=== PATIENT | female | born 1945 | race Caucasian/White ===

== ENCOUNTER 2020-01-28 07:34 | Outpatient (REF) | payer MEDICARE, SELFPAY ==
[2020-01-28 08:13] LABS: MANUAL DIFF FLAG NO
[2020-01-28 08:23] LABS: Basophils Percent Auto 0.7 % (0-2); Eosinophils Absolute Auto 0.2 X10*3/uL (0.0-0.4); Eosinophils Percent Auto 2.5 % (0-4); Hematocrit 42.8 % (37-47); Hemoglobin 14.2 g/dl (12.0-16.0); Imm Gran Abs Auto 0.02 X10*3/uL (0.00-0.03); Imm Gran Pct Auto 0.3 % (0.0-0.4); Lymphocytes Absolute Auto 1.6 X10*3/uL (1.2-4.9); Lymphocytes Percent Auto 26.7 % (20-40); Mean Corpuscular HGB Conc 33.2 g/dl (31.0-35.0); Mean Corpuscular Volume 90.5 fL (80-98); Mean Platelet Volume 8.5 fL (9.4-12.3); Monocytes Absolute Auto 0.6 X10*3/uL (0.1-1.2); Monocytes Percent Auto 9.4 % (2-11); Neutrophils Absolute Auto 3.7 X10*3/uL (2.0-8.3); Neutrophils Percent Auto 60.4 % (45-73); Platelet Count 276 X10*3/uL (160-400); Red Blood Count 4.73 X10*6/uL (4.20-5.50); Red Cell Distribution Width 12.1 % (11.0-16.0); White Blood Count 6.1 X10*3/uL (4.8-10.8)
[2020-01-28 08:42] LABS: Alanine Aminotransferase 31 U/L (0-31); Albumin Level 4.5 g/dL (3.5-5.0); Alkaline Phosphatase 78 U/L (39-117); Anion Gap 13 (12-20); Aspartate Amino Transferase 19 U/L (5-31); Bilirubin Total 1.2 mg/dL (0.0-1.0); Blood Urea Nitrogen 16 mg/dL (9-16); Calcium 9.4 mg/dL (8.4-10.2); Carbon Dioxide 30 mmol/L (22-29); Chloride 98 mmol/L (96-108); Cholesterol 212 mg/dL; Estimated Glomerular Filt Rate > 60; Glucose Fasting 108 mg/dL (60-99); HDL Cholesterol 69 mg/dL; LDL Cholesterol Calculated 126 mg/dl; Potassium 3.6 mmol/l (3.3-5.1); Sodium 137 mmol/L (135-145); Triglycerides 85 mg/dL
[2020-01-28 09:05] LABS: Thyroid Stimulating Hormone 0.84 mIU/mL (0.32-4.0)
== END 2020-01-28 07:35 | disposition home or self-care (01) ==
LOC: HO.LAB 07:34
PROVIDERS: PCP Internal Medicine; Visit Provider Internal Medicine
DX: I10 Essential (primary) hypertension (principal)
CPT/HCPCS: 36415; 80053; 80061; 84443; 85025

== ENCOUNTER 2020-02-11 09:56 | Outpatient (REF) | payer MEDICARE, OTHER, SELFPAY ==
--- NOTE | 2020-02-11 | XR_ITS ---
EXAMINATION: XR PELVIS CLINICAL INFORMATION: Sacroiliitis COMPARISON: None TECHNIQUE: AP view of the pelvis. FINDINGS: Mild degenerative changes are seen at the superior aspect of the right sacroiliac joint. The sacroiliac joints are otherwise well defined without erosive changes to suggest acute sacroiliitis. There are advanced degenerative changes in the lower lumbar spine as well as degenerative changes in the bilateral hips and at the pubic symphysis. No acute osseous abnormality is seen. IMPRESSION: Mild degenerative changes superior right sacroiliac joint. No evidence of erosive sacroiliitis. Degenerative changes in the lumbar spine and hips.
== END 2020-02-11 09:57 | disposition home or self-care (01) ==
LOC: HO.XRAY 09:56
PROVIDERS: PCP Internal Medicine; Visit Provider Physician Assistant
DX: M46.1 Sacroiliitis, not elsewhere classified (principal)
CPT/HCPCS: 72170

== ENCOUNTER 2020-03-28 08:46 | Outpatient (REF) | payer MEDICARE, OTHER, SELFPAY ==
--- NOTE | 2020-03-28 08:50 | MM_ITS ---
EXAMINATION: MM SCREENING DIGITAL BREAST TOMOSYNTHESIS, BILATERAL CLINICAL INFORMATION: Screening. Asymptomatic. The lifetime risk of breast cancer based on the Tyrer-Cuzick Model is 6%. COMPARISON: Mammography: 03/25/2019, 02/25/2018, 01/30/2017 TECHNIQUE: Digital breast tomosynthesis is performed in both the craniocaudal and mediolateral oblique views along with computer-aided detection (CAD). Synthesized 2D images are generated from the tomosynthesis. FINDINGS: There are scattered areas of fibroglandular density (ACR BI-RADS breast composition Category b). Parenchymal pattern is similar to prior exams. No developing density or interval mass or architectural abnormality. Again, there are scattered bilateral punctate and some coarse calcifications predominantly bilateral anterior breasts. No significant changes. MM/MM tomosynthesis screening BI IMPRESSION: No mammographic evidence of malignancy. ASSESSMENT: BI-RADS 2: Benign RECOMMENDATION: Routine annual mammography screening. This patient's information was entered into a reminder system with a target due date for their next mammogram.
== END 2020-03-28 08:47 | disposition home or self-care (01) ==
LOC: HO.MAMMO 08:46
PROVIDERS: PCP Internal Medicine; Visit Provider Internal Medicine
DX: Z12.31 Encounter for screening mammogram for malignant neoplasm of breast (principal)
CPT/HCPCS: 77063; 77067

== ENCOUNTER 2020-08-02 06:58 | Outpatient (REF) | payer MEDICARE, OTHER, SELFPAY ==
[2020-08-02 08:38] LABS: Cholesterol 224 mg/dL; HDL Cholesterol 79 mg/dL; LDL Cholesterol Calculated 131 mg/dl; Triglycerides 70 mg/dL
== END 2020-08-02 06:59 | disposition home or self-care (01) ==
LOC: HO.LAB 06:58
PROVIDERS: PCP Internal Medicine; Visit Provider Internal Medicine
DX: E11.9 Type 2 diabetes mellitus without complications (principal); E78.5 Hyperlipidemia, unspecified
CPT/HCPCS: 36415; 80061

== ENCOUNTER 2020-12-22 07:52 | Outpatient (REF) | payer MEDICARE, OTHER, SELFPAY ==
[2020-12-22 08:52] LABS: MANUAL DIFF FLAG NO
[2020-12-22 08:59] LABS: Basophils Percent Auto 0.6 % (0-2); Eosinophils Absolute Auto 0.3 X10*3/uL (0.0-0.4); Eosinophils Percent Auto 4.2 % (0-4); Hematocrit 41.5 % (37-47); Hemoglobin 13.5 g/dl (12.0-16.0); Imm Gran Abs Auto 0.02 X10*3/uL (0.00-0.03); Imm Gran Pct Auto 0.3 % (0.0-0.4); Lymphocytes Percent Auto 28.5 % (20-40); Mean Corpuscular HGB Conc 32.5 g/dl (31.0-35.0); Mean Corpuscular Hemoglobin 28.8 pg (27.0-33.0); Mean Corpuscular Volume 88.7 fL (80-98); Mean Platelet Volume 8.9 fL (9.4-12.3); Monocytes Absolute Auto 0.6 X10*3/uL (0.1-1.2); Monocytes Percent Auto 8.3 % (2-11); Neutrophils Absolute Auto 4.1 X10*3/uL (2.0-8.3); Neutrophils Percent Auto 58.1 % (45-73); Platelet Count 356 X10*3/uL (160-400); Red Blood Count 4.68 X10*6/uL (4.20-5.50); Red Cell Distribution Width 12.2 % (11.0-16.0); White Blood Count 7.1 X10*3/uL (4.8-10.8)
[2020-12-22 09:07] LABS: Estimated Average Glucose 105 mg/dL; Hemoglobin A1c % 5.3 %
[2020-12-22 09:34] LABS: Alanine Aminotransferase 25 U/L (0-31); Albumin Level 4.7 g/dL (3.5-5.0); Alkaline Phosphatase 99 U/L (39-117); Anion Gap 15 (12-20); Aspartate Amino Transferase 17 U/L (5-31); Bilirubin Total 1.2 mg/dL (0.0-1.0); Blood Urea Nitrogen 11 mg/dL (9-16); Carbon Dioxide 29 mmol/L (22-29); Chloride 94 mmol/L (96-108); Cholesterol 208 mg/dL; Estimated Glomerular Filt Rate > 60; Glucose Fasting 102 mg/dL (60-99); HDL Cholesterol 56 mg/dL; LDL Cholesterol Calculated 126 mg/dl; Sodium 134 mmol/L (135-145); Total Protein 7.4 g/dL (6.5-8.0); Triglycerides 133 mg/dL
== END 2020-12-22 07:53 | disposition home or self-care (01) ==
LOC: HO.LAB 07:52
PROVIDERS: PCP Internal Medicine; Visit Provider Internal Medicine
DX: Z00.00 Encounter for general adult medical examination without abnormal findings (principal); E11.9 Type 2 diabetes mellitus without complications; E03.9 Hypothyroidism, unspecified
CPT/HCPCS: 36415; 80053; 80061; 83036; 84443; 85025

== ENCOUNTER 2021-01-16 08:31 | Outpatient (REF) | payer MEDICARE, OTHER, SELFPAY ==
--- NOTE | ~2021-01-16 | MM_ITS ---
EXAMINATION: BONE DENSITOMETRY CLINICAL INDICATION: Menopause. COMPARISON: Previous BD dated 10/23/2010 and baseline BD dated 05/07/2007. TECHNIQUE: Using a [employer] DXA System (software version: 13.1) manufactured by [employer], dual-energy x-ray absorptiometry was performed of the lumbar spine and left hip. The images are of good technical quality. Summary results are attached. FINDINGS: AP SPINE L1-L3 (excluding L4): The data of L1-L4 has been changed to exclude the L4 vertebral body, because at this level may cause overestimation of lumbar spine density. Current: BMD 1.168 g/cm2, Z-score 1.6, T-score 0.0, normal, 8.8% increase from previous, 0.8% decrease from baseline (<5% change is not significant). Prior: BMD 1.074 g/cm2. Baseline: BMD 1.177 g/cm2. LEFT FEMUR, NECK: Current: BMD 0.691 g/cm2, Z-score -0.6, T-score -2.5, osteoporosis. Prior: BMD 0.814 g/cm2. Baseline: BMD 0.824 g/cm2. LEFT FEMUR, TOTAL: Current: BMD 0.757 g/cm2, Z-score -0.3, T-score -2.0, osteopenia, 19.7% decrease from previous, 20.6% decrease from baseline (<5% change is not significant). Prior: BMD 0.943 g/cm2. Baseline: BMD 0.954 g/cm2. IDENTIFIED RISK FACTORS: Early menopause, height loss, history of fracture (adult), hysterectomy, secondary osteoporosis, bilateral oophorectomy. HISTORY OF FRACTURE: Other. MEDICATIONS: None listed. MM/XR DEXA axial skeleton IMPRESSION: 1. DIAGNOSIS: Osteoporosis based on the lowest T-score value of -2.5 in the femoral neck applying World Health Organization criteria. 2. 10-YEAR FRACTURE RISK PREDICTION, FRAX: Major osteoporotic fracture (clinical spine, forearm, hip or shoulder) 24.8%. Hip fracture 7.6%. 3. Treatment Recommendations: NOF guidelines recommend consideration for treatment in postmenopausal women and men age 50 and older presenting with the following: -A hip or vertebral (clinical or morphometric) fracture. -T-score less than or equal to -2.5 at the femoral neck or spine after appropriate evaluation to exclude secondary causes. -Low bone mass at the hip or spine and a 10-year fracture probability by FRAX of greater than or equal to 3% for hip fracture or greater than or equal to 20% for major osteoporotic fracture based on the [place] adapted WHO algorithm. 4. Other Recommendations: All treatment decisions require clinical judgment and consideration of individual patient factors, including patient preferences, comorbidities, previous drug use, risk factors not captured in the FRAX model (e.g. frailty, falls, vitamin D deficiency, increased bone turnover, interval significant decline in bone density) and possible under or overestimation of fracture risk by FRAX. Additional medical evaluation for secondary cause of low bone mineral density may be appropriate. FUTURE SCAN RECOMMENDATION: People with diagnosed cases of osteoporosis or at high risk for fracture should have regular bone mineral density tests. For patients eligible for Medicare, routine testing is allowed once every 2 years. The testing frequency can be increased to one year for patients who have rapidly progressing disease, those who are receiving or discontinuing medical therapy to restore bone mass, or have additional risk factors.
== END 2021-01-16 08:32 | disposition home or self-care (01) ==
LOC: HO.MAMMO 08:31
PROVIDERS: PCP Internal Medicine; Visit Provider Nurse Practitioner Family
DX: Z13.820 Encounter for screening for osteoporosis (principal); M81.0 Age-related osteoporosis without current pathological fracture; Z78.0 Asymptomatic menopausal state; Z98.890 Other specified postprocedural states; Z90.722 Acquired absence of ovaries, bilateral
CPT/HCPCS: 77080

== ENCOUNTER 2021-04-04 10:24 | Outpatient (REF) | payer MEDICARE, OTHER, SELFPAY ==
--- NOTE | ~2021-04-04 | MM_ITS ---
EXAMINATION: MM SCREENING DIGITAL BREAST TOMOSYNTHESIS, BILATERAL CLINICAL INFORMATION: Screening. Asymptomatic. The lifetime risk of breast cancer based on the Tyrer-Cuzick Model is 4.5%. COMPARISON: Mammography: March 28, 2020 and studies dating back to November 18, 2011 TECHNIQUE: Digital breast tomosynthesis is performed in both the craniocaudal and mediolateral oblique views along with computer-aided detection (CAD). Synthesized 2D images are generated from the tomosynthesis. FINDINGS: The breasts are heterogeneously dense, which may obscure small masses (ACR BI-RADS breast composition Category c). There are no significant masses, abnormal calcifications, or other abnormalities. MM/MM tomosynthesis screening BI IMPRESSION: There are no significant changes from prior study. ASSESSMENT: BI-RADS 1: Negative RECOMMENDATION: Routine annual mammography screening. This patient's information was entered into a reminder system with a target due date for their next mammogram.
== END 2021-04-04 10:25 | disposition home or self-care (01) ==
LOC: HO.MAMMO 10:24
PROVIDERS: Visit Provider Internal Medicine
DX: Z12.31 Encounter for screening mammogram for malignant neoplasm of breast (principal)
CPT/HCPCS: 77063; 77067

== ENCOUNTER 2021-09-30 06:51 | Outpatient (REF) | payer MEDICARE, OTHER, SELFPAY ==
[2021-09-30 08:18] LABS: Cholesterol 218 mg/dL; HDL Cholesterol 62 mg/dL; LDL Cholesterol Calculated 142 mg/dl; Triglycerides 73 mg/dL
== END 2021-09-30 06:52 | disposition home or self-care (01) ==
LOC: HO.LAB 06:51
PROVIDERS: PCP Internal Medicine; Visit Provider Internal Medicine
DX: E11.9 Type 2 diabetes mellitus without complications (principal)
CPT/HCPCS: 36415; 80061

== ENCOUNTER 2021-10-16 07:47 | Outpatient (REF) | payer MEDICARE, OTHER, SELFPAY ==
--- NOTE | ~2021-10-16 | XR_ITS ---
EXAMINATION: XR CERVICAL SPINE CLINICAL INFORMATION: [id number] running down her right hand. COMPARISON: None TECHNIQUE: 3 views of the cervical spine were obtained. FINDINGS: There is mild straightening of the cervical lordosis. The vertebral heights and alignment are normal. There is loss of the C5-C6 and C6-C7 disc heights with moderate ventral spondylosis C5-C6 and mild ventral and posterior spondylosis at the C6-C7 and C5-C6 disc levels. No visible acute fracture, dislocation seen. The craniovertebral junction and the C1-C2 alignment is normal. The prevertebral soft tissues are normal. XR/XR cervical spine 2V IMPRESSION: Moderate ventral spondylosis of the C5-C6 disc level. There is mild posterior spondylosis of the C5-C6 disc level with ventral and posterior spondylosis of the C6-C7 disc levels. No acute fracture or dislocation seen.
== END 2021-10-16 07:48 | disposition home or self-care (01) ==
LOC: HO.XRAY 07:47
PROVIDERS: PCP Internal Medicine; Visit Provider Internal Medicine
DX: M54.2 Cervicalgia (principal)
CPT/HCPCS: 72040

== ENCOUNTER 2022-04-07 11:45 | Outpatient (REF) | payer MEDICARE, OTHER, SELFPAY ==
--- NOTE | ~2022-04-07 | MM_ITS ---
EXAMINATION: MM SCREENING DIGITAL BREAST TOMOSYNTHESIS, BILATERAL CLINICAL INFORMATION: Screening. Asymptomatic. The lifetime risk of breast cancer based on the Tyrer-Cuzick Model is 4%. COMPARISON: Mammography: 04/04/2021, 03/28/2020, 03/25/2019 TECHNIQUE: Digital breast tomosynthesis is performed in both the craniocaudal and mediolateral oblique views along with computer-aided detection (CAD). Synthesized 2D images are generated from the tomosynthesis. FINDINGS: There are scattered areas of fibroglandular density (ACR BI-RADS breast composition Category b). There is no interval mass or developing density or architectural abnormality. Scattered fine calcifications are again demonstrated predominantly anterior breasts. The axilla and skin contours are unremarkable. There are no significant changes from prior studies. MM/MM tomosynthesis screening BI IMPRESSION: No mammographic evidence of malignancy. ASSESSMENT: BI-RADS 2: Benign RECOMMENDATION: Routine annual mammography screening. This patient's information was entered into a reminder system with a target due date for their next mammogram.
== END 2022-04-07 11:46 | disposition home or self-care (01) ==
LOC: HO.MAMMO 11:45
PROVIDERS: PCP Internal Medicine; Visit Provider Internal Medicine
DX: Z12.31 Encounter for screening mammogram for malignant neoplasm of breast (principal)
CPT/HCPCS: 77063; 77067

== ENCOUNTER 2022-07-21 07:22 | Outpatient (REF) | payer MEDICARE, OTHER, SELFPAY ==
[2022-07-21 07:33] LABS: MANUAL DIFF FLAG NO
[2022-07-21 08:03] LABS: Basophils Percent Auto 0.5 % (0-2); Eosinophils Absolute Auto 0.3 X10*3/uL (0.0-0.4); Eosinophils Percent Auto 4.4 % (0-4); Hematocrit 42.4 % (37.0-47.0); Hemoglobin 14.3 g/dl (12.0-16.0); Imm Gran Abs Auto 0.02 X10*3/uL (0.00-0.03); Imm Gran Pct Auto 0.3 % (0.0-0.4); Lymphocytes Absolute Auto 2.1 X10*3/uL (1.2-4.9); Lymphocytes Percent Auto 35.5 % (20-40); Mean Corpuscular HGB Conc 33.7 g/dl (31.0-35.0); Mean Corpuscular Hemoglobin 29.6 pg (27.0-33.0); Mean Corpuscular Volume 87.8 fL (80.0-98.0); Mean Platelet Volume 8.9 fL (9.4-12.3); Monocytes Absolute Auto 0.6 X10*3/uL (0.1-1.2); Neutrophils Absolute Auto 2.9 x10*3/uL (2.0-8.3); Neutrophils Percent Auto 49.3 % (45-73); Platelet Count 281 X10*3/uL (160-400); Red Blood Count 4.83 X10*6/uL (4.20-5.50); Red Cell Distribution Width 12.5 % (11.0-16.0); White Blood Count 5.9 X10*3/uL (4.8-10.8)
[2022-07-21 08:40] LABS: Anion Gap 15 (12-20)
[2022-07-21 08:48] LABS: Alanine Aminotransferase 27 U/L (0-31); Albumin Level 4.5 g/dL (3.5-5.0); Alkaline Phosphatase 83 U/L (39-117); Aspartate Amino Transferase 19 U/L (5-31); Bilirubin Total 1.9 mg/dL (0.0-1.0); Blood Urea Nitrogen 13 mg/dL (9-16); Calcium 9.7 mg/dL (8.4-10.2); Carbon Dioxide 28 mmol/L (22-29); Chloride 96 mmol/L (96-108); Cholesterol 211 mg/dL; Estimated Glomerular Filt Rate > 60; Glucose Fasting 108 mg/dL (60-99); HDL Cholesterol 53 mg/dL; LDL Cholesterol Calculated 137 mg/dl; Sodium 135 mmol/L (135-145); Total Protein 6.9 g/dL (6.5-8.0); Triglycerides 107 mg/dL
== END 2022-07-21 07:23 | disposition home or self-care (01) ==
LOC: HO.LAB 07:22
PROVIDERS: PCP Internal Medicine; Visit Provider Internal Medicine
DX: I10 Essential (primary) hypertension (principal); E78.5 Hyperlipidemia, unspecified; Z13.0 Encounter for screening for diseases of the blood and blood-forming organs and certain disorders involving the immune mechanism
CPT/HCPCS: 36415; 80053; 80061; 85025

== ENCOUNTER 2023-02-17 11:22 | Outpatient (AMB) | payer MEDICARE, OTHER, SELFPAY ==
--- NOTE | 2023-02-17 11:23 | MHC.PC.OV ---
Vital Signs 02/17/23 11:24 Height 5 ft 2 in Weight 159 lb BMI 29.1 BP 132/78 Blood Pressure Location Lt brachial Position Sitting Pulse 68 Pulse Source Pulse Oximeter Pulse Oximetry (%) 98 Oxygen Delivery Method Room Air Intake Visit Reasons: 6 month f/u Allergies penicillin V Allergy (Unknown, Verified 02/17/23 11:24) Unknown Medication List - Last Reconciled 02/17/23 by Kenney Deluna MD amlodipine 5 mg PO DAILY hydrochlorothiazide 25 mg PO DAILY lisinopril 30 mg PO DAILY lovastatin 40 mg PO DAILY Tobacco use date assessed: 08/06/22 Fall risk assessment: No Falls in past year Last assessed Fall Risk: 02/17/23 Dental Screening Dental Screen Date: 02/17/23 Did you have a dental visit in the last 12 months?: Yes Did you have a dental problem in the last 6 months where you did not have access to dental care?: No Was dental information given to patient?: Patient has dentist HPI 6 month f/u HPI Details HTN and hyperlip on rx; doing well; compliant [facility] Medical History Post-menopausal Preop exam for internal medicine Surgical History History of left knee replacement History of hysterectomy Family History Father Myocardial infarction Mother Breast cancer Social History Housing: House Alcohol intake: current Alcohol intake frequency: 0-2 drinks per day Alcohol type: wine Patient Tobacco Use Status: Never used Tobacco e-Cigarette/Vaping Use: Never Used Second Hand Smoke Exposure: Yes service: No Current occupational status: employed and retired Cognitive needs: No Hearing needs: Yes (hear aide) Vision needs: Yes (reading glasses) Questionnaire PHQ-9 Over the last 2 weeks, how often have you been bothered by any of the following problems? 1. Little interest or pleasure in doing things: not at all 2. Feeling down, depressed, or hopeless: not at all 3. Trouble falling or staying asleep, or sleeping too much: not at all 4. Feeling tired or having little energy: not at all 5. Poor appetite or overeating: not at all 6. Feeling bad about yourself - or that you are a failure or have let yourself or your family down: not at all 7. Trouble concentrating on things, such as reading the newspaper or watching television: not at all 8. Moving or speaking so slowly that other people could have noticed. Or the opposite - being so fidgety or restless that you have been moving around a lot more than usual: not at all 9. Thoughts that you would be better off or of hurting yourself in some way: not at all Total score: 0 Depression Screening Interpretation: Negative Depression Screening Done: Yes Source: Developed by Drs. Santiago Greenfield, Jose Lamas and colleagues, with an educational citlalli from [employer]. Thrive Questionnaire Date Thrive assessed: 08/06/22 AUDIT C Alcohol Use Questionnaire (AUDIT-C) 1. How often do you have a drink containing alcohol?: 4 or more times a week 2. How many drinks containing alcohol do you have on a typical day when you are drinking?: 1 or 2 3. How often do you have six or more drinks on one occasion?: Never Total Score: 4 ENMA-7 AMB Questionnaire ENMA-7 Date ENMA - 7 assessed: 08/06/22 Source: Developed by Drs. Santiago Greenfield, Jose Lamas and colleagues, with an educational citlalli from [employer]. Review of Systems Const Denies chills, Denies headache(s) and Denies weight loss ENT Denies headache(s) Card Denies chest pain, Denies syncope, Denies irregular heart rhythm and Denies dyspnea Resp Denies chest congestion, Denies cough and Denies dyspnea GI Denies abdominal pain, Denies change in stool character, Denies nausea and Denies vomiting Musc Denies deformity and Denies joint swelling Neuro Denies syncope and Denies headache(s) Physical exam (Primary Care) Vital Signs: Last Vital Signs Pulse 68 02/17/23 11:24 BP 132/78 02/17/23 11:24 Pulse Ox 98 02/17/23 11:24 Oxygen Delivery Method Room Air 02/17/23 11:24 BMI result Body Mass Index 29.1 Tobacco/Smoking Status: Tobacco use Status Tobacco use date assessed 08/06/22 02/17/23 11:25 Patient Tobacco Use Status Never used Tobacco 02/17/23 11:25 e-Cigarette/Vaping Use Never Used 02/17/23 11:25 PHQ-9: PHQ-9 Score PHQ-9: Total score 0 02/17/23 11:39 Depression Screening Interpretation: Negative Thrive Assessment: Date of Thrive Assessment Date Thrive assessed 08/06/22 02/17/23 11:25 Const General: cooperative, comfortable, no acute distress and alert Neck Neck: Yes no lymphadenopathy Thyroid: Thyroid normal Resp Effort & Inspection: normal respiratory effort Auscultation: clear to auscultation bilaterally Percussion: percussion normal Cardio Jugular venous distension: no JVD Palpation: normal PMI Rate: regular rate Rhythm: regular rhythm Heart sounds: S1 normal heart sound present and S2 normal heart sound present GI Inspection: Yes normal to inspection Palpation (GI): No hepatosplenomegaly present Skin General skin exam: no rashes or lesions noted Extrem General: Yes no clubbing, cyanosis or edema Assessment and Plan Assessment & Plan (1) Hyperlipidemia: Code(s): E78.5 - Hyperlipidemia, unspecified Plan: stable; same rx (2) Hypertension: Code(s): I10 - Essential (primary) hypertension Plan: stable; same rx Orders: Orders Lipid Panel Today E78.5 - Hyperlipidemia, unspecified Coding Level of Care Code Est Pt Level 3 (05483) Diagnoses Hyperlipidemia E78.5 Hypertension I10 Additional Codes PHQ-9 - 05196 - PHQ-9 Billing: ([id number])
[2023-02-17 11:24] VITALS: BP 132/78; PULSE 68; O2SAT 98; BMI 29.1
== END 2023-02-17 11:47 | disposition home or self-care (01) ==
PROVIDERS: Visit Provider Internal Medicine
DX: E78.5 Hyperlipidemia, unspecified (principal); I10 Essential (primary) hypertension
CPT/HCPCS: 99213

== ENCOUNTER 2023-04-08 11:52 | Outpatient (REF) | payer MEDICARE, OTHER, SELFPAY | END 2023-04-08 11:53 | disposition home or self-care (01) | LOC: HO.MAMMO 11:52 | PROVIDERS: PCP Internal Medicine; Visit Provider Internal Medicine | DX: Z12.31 Encounter for screening mammogram for malignant neoplasm of breast (principal) | CPT/HCPCS: 77063; 77067 ==

== ENCOUNTER → 2023-04-08 12:15 | Outpatient (BNV) | payer MEDICARE, OTHER, SELFPAY | PROVIDERS: PCP Internal Medicine; Visit Provider Radiology Diagnostic Radiology | DX: Z12.31 Encounter for screening mammogram for malignant neoplasm of breast (principal) | CPT/HCPCS: 77063; 77067 ==

== ENCOUNTER 2023-06-23 07:10 | Outpatient (REF) | payer MEDICARE, OTHER, SELFPAY ==
[2023-06-23 07:24] LABS: MANUAL DIFF FLAG NO
[2023-06-23 07:45] LABS: Basophils Percent Auto 0.6 % (0-2); Eosinophils Absolute Auto 0.2 X10*3/uL (0.0-0.4); Eosinophils Percent Auto 3.5 % (0-4); Hematocrit 44.9 % (37.0-47.0); Hemoglobin 15.1 g/dl (12.0-16.0); Imm Gran Abs Auto 0.02 X10*3/uL (0.00-0.03); Imm Gran Pct Auto 0.3 % (0.0-0.4); Lymphocytes Absolute Auto 2.1 X10*3/uL (1.2-4.9); Lymphocytes Percent Auto 31.8 % (20-40); Mean Corpuscular HGB Conc 33.6 g/dl (31.0-35.0); Mean Corpuscular Hemoglobin 29.4 pg (27.0-33.0); Mean Corpuscular Volume 87.5 fL (80.0-98.0); Mean Platelet Volume 8.6 fL (9.4-12.3); Monocytes Absolute Auto 0.6 X10*3/uL (0.1-1.2); Monocytes Percent Auto 9.2 % (2-11); Neutrophils Absolute Auto 3.6 x10*3/uL (2.0-8.3); Neutrophils Percent Auto 54.6 % (45-73); Platelet Count 288 X10*3/uL (160-400); Red Blood Count 5.13 X10*6/uL (4.20-5.50); Red Cell Distribution Width 12.3 % (11.0-16.0); White Blood Count 6.6 X10*3/uL (4.8-10.8)
[2023-06-23 08:28] LABS: Alanine Aminotransferase 23 U/L (0-31); Albumin Level 4.7 g/dL (3.5-5.0); Alkaline Phosphatase 75 U/L (39-117); Anion Gap 12 (12-20); Aspartate Amino Transferase 20 U/L (5-31); Bilirubin Total 1.2 mg/dL (0.0-1.0); Blood Urea Nitrogen 14 mg/dL (9-16); Calcium 10.4 mg/dL (8.4-10.2); Carbon Dioxide 31 mmol/L (22-29); Chloride 98 mmol/L (96-108); Cholesterol 212 mg/dL (<200); Estimated Glomerular Filt Rate > 60; Glucose Fasting 112 mg/dL (60-99); HDL Cholesterol 62 mg/dL (>40); LDL Cholesterol Calculated 132 mg/dL (<100); Potassium 3.8 mmol/L (3.3-5.1); Sodium 137 mmol/L (135-145); Total Protein 8.1 g/dL (6.5-8.0); Triglycerides 92 mg/dL (<150)
[2023-06-23 08:32] LABS: Thyroid Stimulating Hormone 1.12 uIU/mL (0.32-4.0)
== END 2023-06-23 07:11 | disposition home or self-care (01) ==
LOC: HO.LAB 07:10
PROVIDERS: PCP Internal Medicine; Visit Provider Internal Medicine
DX: E78.5 Hyperlipidemia, unspecified (principal); D64.9 Anemia, unspecified; N28.9 Disorder of kidney and ureter, unspecified; E03.9 Hypothyroidism, unspecified
CPT/HCPCS: 36415; 80053; 80061; 84443; 85025

== ENCOUNTER 2023-06-29 11:19 | Outpatient (AMB) | payer MEDICARE, OTHER, SELFPAY ==
[2023-06-29 11:22] VITALS: BP 140/64; PULSE 65; O2SAT 95; BMI 29.4
--- NOTE | 2023-06-29 11:22 | MHC.PC.OV ---
Vital Signs 06/29/23 11:22 Height 5 ft 2 in Weight 161 lb BMI 29.4 BP 140/64 H Blood Pressure Location Lt brachial Position Sitting Pulse 65 Pulse Source Pulse Oximeter Pulse Oximetry (%) 95 Oxygen Delivery Method Room Air Intake Visit Reasons: 4M. F/U-BP Cytology Teacher: Not Required per policy Accompanied by: Self / Same As Patient Allergies penicillin V Allergy (Unknown, Verified 06/29/23 11:22) Unknown Medication List - Last Reconciled 06/29/23 by Kenney Deluna MD amlodipine 5 mg PO DAILY hydrochlorothiazide 25 mg PO DAILY lisinopril 30 mg PO DAILY lovastatin 40 mg PO DAILY Tobacco use date assessed: 06/29/23 Fall risk assessment: No Falls in past year Last assessed Fall Risk: 06/29/23 Dental Screening Dental Screen Date: 06/29/23 Did you have a dental visit in the last 12 months?: Yes Did you have a dental problem in the last 6 months where you did not have access to dental care?: No Was dental information given to patient?: Patient has dentist HPI 4M. F/U-BP HPI Details HTN on Rx; doing well and compliant [facility] Medical History Post-menopausal Preop exam for internal medicine Surgical History History of left knee replacement History of hysterectomy Family History Father Myocardial infarction Mother Breast cancer Social History Housing: House Alcohol intake: current Alcohol intake frequency: 0-2 drinks per day Alcohol type: wine Patient Tobacco Use Status: Never used Tobacco e-Cigarette/Vaping Use: Never Used Second Hand Smoke Exposure: Yes service: No Current occupational status: employed and retired Cognitive needs: No Hearing needs: Yes (hear aide) Vision needs: Yes (reading glasses) Questionnaire PHQ-9 Over the last 2 weeks, how often have you been bothered by any of the following problems? 1. Little interest or pleasure in doing things: not at all 2. Feeling down, depressed, or hopeless: not at all 3. Trouble falling or staying asleep, or sleeping too much: not at all 4. Feeling tired or having little energy: not at all 5. Poor appetite or overeating: not at all 6. Feeling bad about yourself - or that you are a failure or have let yourself or your family down: not at all 7. Trouble concentrating on things, such as reading the newspaper or watching television: not at all 8. Moving or speaking so slowly that other people could have noticed. Or the opposite - being so fidgety or restless that you have been moving around a lot more than usual: not at all 9. Thoughts that you would be better off or of hurting yourself in some way: not at all Total score: 0 Depression Screening Interpretation: Negative Depression Screening Done: Yes 89260 - PHQ-9 Billing: Yes Source: Developed by Drs. Santiago Greenfield, Radha Brandt, Jose Mcclellan and colleagues, with an educational citlalli from [employer] Thrive Questionnaire Date Thrive assessed: 06/29/23 I am a: Patient What is your living situation today?: I have a steady place to live Within the past 12 months, did the food you bought not last and you didn't have the money to get more?: Never true Within the past 12 months, did you worry whether your food would run out before you got money to buy more?: Never true Do you have trouble paying for medicines?: No Do you have trouble getting transportation to medical appointments?: No Do you have trouble paying your heating and electricity bill?: No Do you have trouble taking care of your child, family member or friend?: No Do you have trouble with day-to-day activities such as bathing, preparing meals, shopping, managing finances, etc.?: No Are you currently unemployed and looking for a job?: No Are you interested in more education?: No Please select the resources that you would like help with: None THRIVE Score: 0 AUDIT C Alcohol Use Questionnaire (AUDIT-C) 1. How often do you have a drink containing alcohol?: 4 or more times a week 2. How many drinks containing alcohol do you have on a typical day when you are drinking?: 1 or 2 3. How often do you have six or more drinks on one occasion?: Never Total Score: 4 NEMA-7 AMB Questionnaire ENMA-7 Date ENMA - 7 assessed: 06/29/23 Feeling nervous, anxious, or on edge: 0 = Not at all Not being able to stop or control worryin = Not at all Worrying too much about different things: 0 = Not at all Trouble relaxin = Not at all Being so restless that it is hard to sit still: 0 = Not at all Becoming easily annoyed or irritable: 0 = Not at all Feeling afraid as if something awful might happen: 0 = Not at all Total ENMA-7 score (0-4 normal; 5-9 mild; 10-14 moderate; 15-21 severe): 0 Source: Developed by Drs. Santiago Greenfield, Radha Brandt, Jose Mcclellan and colleagues, with an educational citlalli from [employer] Review of Systems Const Denies chills, Denies headache(s) and Denies weight loss ENT Denies headache(s) Card Denies chest pain, Denies syncope, Denies irregular heart rhythm and Denies dyspnea Resp Denies chest congestion, Denies cough and Denies dyspnea GI Denies abdominal pain, Denies change in stool character, Denies nausea and Denies vomiting Musc Denies deformity and Denies joint swelling Neuro Denies syncope and Denies headache(s) Physical exam (Primary Care) Vital Signs: Last Vital Signs Pulse 65 06/29/23 11:22 BP 140/64 H 06/29/23 11:22 Pulse Ox 95 06/29/23 11:22 Oxygen Delivery Method Room Air 06/29/23 11:22 BMI result Body Mass Index 29.4 Tobacco/Smoking Status: Tobacco use Status Tobacco use date assessed 06/29/23 06/29/23 11:23 Patient Tobacco Use Status Never used Tobacco 06/29/23 11:23 e-Cigarette/Vaping Use Never Used 06/29/23 11:23 PHQ-9: PHQ-9 Score PHQ-9: Total score 0 06/29/23 11:28 Depression Screening Interpretation: Negative Thrive Assessment: Date of Thrive Assessment Date Thrive assessed 06/29/23 06/29/23 11:23 Const General: cooperative, comfortable, no acute distress and alert Neck Neck: Yes no lymphadenopathy Thyroid: Thyroid normal Resp Effort & Inspection: normal respiratory effort Auscultation: clear to auscultation bilaterally Percussion: percussion normal Cardio Jugular venous distension: no JVD Palpation: normal PMI Rate: regular rate Rhythm: regular rhythm Heart sounds: S1 normal heart sound present and S2 normal heart sound present GI Inspection: Yes normal to inspection Palpation (GI): No hepatosplenomegaly present Skin General skin exam: no rashes or lesions noted Extrem General: Yes no clubbing, cyanosis or edema Assessment and Plan Assessment & Plan (1) Hypertension: Code(s): I10 - Essential (primary) hypertension Plan: stable; same rx Orders: Orders Lipid Panel Today E78.5 - Hyperlipidemia, unspecified Coding Level of Care Code Est Pt Level 3 (49295) Diagnoses Hypertension I10
== END 2023-06-29 11:41 | disposition home or self-care (01) ==
PROVIDERS: PCP Internal Medicine; Visit Provider Internal Medicine
DX: I10 Essential (primary) hypertension (principal)
CPT/HCPCS: 99213

== ENCOUNTER 2023-12-29 10:28 | Outpatient (AMB) | payer MEDICARE, OTHER, SELFPAY ==
--- NOTE | 2023-12-29 10:38 | MHC.PC.OV ---
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 Accompanied by: Self / Same As Patient Allergies penicillin V Allergy (Unknown, Verified 12/29/23 10:40) Unknown Medication List - Last Reconciled 12/29/23 by Kenney Deluna MD amlodipine 5 mg PO DAILY hydrochlorothiazide 25 mg PO DAILY lisinopril 30 mg PO DAILY lovastatin 40 mg PO DAILY Tobacco use date assessed: 06/29/23 Fall risk assessment: No Falls in past year Last assessed Fall Risk: 12/29/23 Dental Screening Dental Screen Date: 06/29/23 HPI 6 Month F/U HPI Details hypertension on rx; doing well and compliant [facility] Medical History Post-menopausal Preop exam for internal medicine Surgical History History of left knee replacement History of hysterectomy Family History Father Myocardial infarction Mother Breast cancer Social History Housing: House Alcohol intake: current Alcohol intake frequency: 0-2 drinks per day Alcohol type: wine Patient Tobacco Use Status: Never used Tobacco Tobacco use type: Cigarette e-Cigarette/Vaping Use: Never Used Second Hand Smoke Exposure: Yes service: No Current occupational status: employed and retired Cognitive needs: No Hearing needs: Yes (hear aide) Vision needs: Yes (reading glasses) Questionnaire PHQ-9 Over the last 2 weeks, how often have you been bothered by any of the following problems? 1. Little interest or pleasure in doing things: not at all 2. Feeling down, depressed, or hopeless: not at all 3. Trouble falling or staying asleep, or sleeping too much: not at all 4. Feeling tired or having little energy: not at all 5. Poor appetite or overeating: not at all 6. Feeling bad about yourself - or that you are a failure or have let yourself or your family down: not at all 7. Trouble concentrating on things, such as reading the newspaper or watching television: not at all 8. Moving or speaking so slowly that other people could have noticed. Or the opposite - being so fidgety or restless that you have been moving around a lot more than usual: not at all 9. Thoughts that you would be better off or of hurting yourself in some way: not at all Total score: 0 Depression Screening Interpretation: Negative Depression Screening Done: Yes 36565 - PHQ-9 Billing: Yes Source: Developed by Drs. Santiago Greenfield, Radha Brandt, Jose Mcclellan and colleagues, with an educational citlalli from [employer]. Thrive Questionnaire Date Thrive assessed: 06/29/23 AUDIT C Alcohol Use Questionnaire (AUDIT-C) 1. How often do you have a drink containing alcohol?: 4 or more times a week 2. How many drinks containing alcohol do you have on a typical day when you are drinking?: 1 or 2 3. How often do you have six or more drinks on one occasion?: Never Total Score: 4 ENMA-7 AMB Questionnaire ENMA-7 Date ENMA - 7 assessed: 06/29/23 Source: Developed by Drs. Santiago Greenfield, Radha Brandt, Jose Mcclellan and colleagues, with an educational citlalli from [employer]. Review of Systems Const Denies chills, Denies headache(s) and Denies weight loss ENT Denies headache(s) Card Denies chest pain, Denies syncope, Denies irregular heart rhythm and Denies dyspnea Resp Denies chest congestion, Denies cough and Denies dyspnea GI Denies abdominal pain, Denies change in stool character, Denies nausea and Denies vomiting Musc Denies deformity and Denies joint swelling Neuro Denies syncope and Denies headache(s) Physical exam (Primary Care) Vital Signs: Last Vital Signs Pulse 66 12/29/23 10:39 BP 132/68 12/29/23 10:39 Pulse Ox 96 12/29/23 10:39 Oxygen Delivery Method Room Air 12/29/23 10:39 BMI result Body Mass Index 29.3 Tobacco/Smoking Status: Tobacco use Status Tobacco use date assessed 06/29/23 12/29/23 10:42 Patient Tobacco Use Status Never used Tobacco 12/29/23 10:42 Tobacco use type Cigarette 12/29/23 10:42 e-Cigarette/Vaping Use Never Used 12/29/23 10:42 PHQ-9: PHQ-9 Score PHQ-9: Total score 0 12/29/23 10:42 Depression Screening Interpretation: Negative Thrive Assessment: Date of Thrive Assessment Date Thrive assessed 06/29/23 12/29/23 10:42 Const General: cooperative, comfortable, no acute distress and alert Neck Neck: Yes no lymphadenopathy Thyroid: Thyroid normal Resp Effort & Inspection: normal respiratory effort Auscultation: clear to auscultation bilaterally Percussion: percussion normal Cardio Jugular venous distension: no JVD Palpation: normal PMI Rate: regular rate Rhythm: regular rhythm Heart sounds: S1 normal heart sound present and S2 normal heart sound present GI Inspection: Yes normal to inspection Palpation (GI): No hepatosplenomegaly present Skin General skin exam: no rashes or lesions noted Extrem General: Yes no clubbing, cyanosis or edema Assessment and Plan Assessment & Plan (1) Hypertension: Code(s): I10 - Essential (primary) hypertension Plan: stable; same rx Orders: Orders Lipid Panel Today Z13.220 - Encounter for screening for lipoid disorders Thyroid Stimulating Hormone Today Z13.29 - Encounter for screening for other suspected endocrine disorder Comprehensive [place]. Panel Fast Today Z13.9 - Encounter for screening, unspecified Complete Blood Count Auto Diff Today Z13.0 - Encounter for screening for diseases of the blood and blood-forming organs and certain disorders involving the immune mechanism Coding Level of Care Code Est Pt Level 3 (69732) Diagnoses Hypertension I10
[2023-12-29 10:39] VITALS: BP 132/68; PULSE 66; O2SAT 96; BMI 29.3
== END 2023-12-29 10:55 | disposition home or self-care (01) ==
PROVIDERS: PCP Internal Medicine; Visit Provider Internal Medicine
DX: I10 Essential (primary) hypertension (principal)
CPT/HCPCS: 99213

== ENCOUNTER → 2024-04-13 10:00 | Outpatient (BNV) | payer MEDICARE, OTHER, SELFPAY | PROVIDERS: PCP Internal Medicine; Visit Provider Internal Medicine | DX: Z12.31 Encounter for screening mammogram for malignant neoplasm of breast (principal) | CPT/HCPCS: 77063; 77067 ==

== ENCOUNTER 2024-04-13 11:36 | Outpatient (REF) | payer MEDICARE, OTHER, SELFPAY | END 2024-04-13 11:37 | disposition home or self-care (01) | LOC: HO.MAMMO 11:36 | PROVIDERS: PCP Internal Medicine; Visit Provider Internal Medicine | DX: Z12.31 Encounter for screening mammogram for malignant neoplasm of breast (principal) | CPT/HCPCS: 77063; 77067 ==

== ENCOUNTER 2024-06-22 07:41 | Outpatient (REF) | payer MEDICARE, OTHER, SELFPAY ==
[2024-06-22 07:54] LABS: MANUAL DIFF FLAG NO
[2024-06-22 08:11] LABS: Basophils Percent Auto 0.5 % (0-2); Eosinophils Absolute Auto 0.2 X10*3/uL (0.0-0.4); Eosinophils Percent Auto 3.2 % (0-4); Hematocrit 42.6 % (37.0-47.0); Hemoglobin 14.4 g/dl (12.0-16.0); Imm Gran Abs Auto 0.02 X10*3/uL (0.00-0.03); Imm Gran Pct Auto 0.3 % (0.0-0.4); Lymphocytes Absolute Auto 2.3 X10*3/uL (1.2-4.9); Lymphocytes Percent Auto 30.7 % (20-40); Mean Corpuscular HGB Conc 33.8 g/dl (31.0-35.0); Mean Corpuscular Hemoglobin 29.8 pg (27.0-33.0); Mean Corpuscular Volume 88.2 fL (80.0-98.0); Mean Platelet Volume 8.5 fL (9.4-12.3); Monocytes Absolute Auto 0.7 X10*3/uL (0.1-1.2); Monocytes Percent Auto 9.5 % (2-11); Neutrophils Absolute Auto 4.2 x10*3/uL (2.0-8.3); Neutrophils Percent Auto 55.8 % (45-73); Platelet Count 280 X10*3/uL (160-400); Red Blood Count 4.83 X10*6/uL (4.20-5.50); Red Cell Distribution Width 12.1 % (11.0-16.0); White Blood Count 7.5 X10*3/uL (4.8-10.8)
[2024-06-22 08:53] LABS: Alanine Aminotransferase 26 U/L (0-31); Albumin Level 4.5 g/dL (3.5-5.0); Alkaline Phosphatase 76 U/L (39-117); Anion Gap 13 (12-20); Aspartate Amino Transferase 22 U/L (5-31); Bilirubin Total 1.2 mg/dL (0.0-1.0); Blood Urea Nitrogen 14 mg/dL (9-16); Calcium 9.9 mg/dL (8.4-10.2); Carbon Dioxide 29 mmol/L (22-29); Chloride 98 mmol/L (96-108); Cholesterol 191 mg/dL (<200); Estimated Glomerular Filt Rate > 60; Glucose Fasting 110 mg/dL (60-99); HDL Cholesterol 56 mg/dL (>40); LDL Cholesterol Calculated 117 mg/dL (<100); Potassium 3.9 mmol/L (3.3-5.1); Sodium 136 mmol/L (135-145); Triglycerides 92 mg/dL (<150)
[2024-06-22 09:12] LABS: Thyroid Stimulating Hormone 0.91 uIU/mL (0.32-4.0)
== END 2024-06-22 07:42 | disposition home or self-care (01) ==
LOC: HO.LAB 07:41
PROVIDERS: PCP Internal Medicine; Visit Provider Internal Medicine
DX: Z13.220 Encounter for screening for lipoid disorders (principal); Z13.0 Encounter for screening for diseases of the blood and blood-forming organs and certain disorders involving the immune mechanism; Z13.29 Encounter for screening for other suspected endocrine disorder; Z13.9 Encounter for screening, unspecified
CPT/HCPCS: 36415; 80053; 80061; 84443; 85025

== ENCOUNTER 2024-06-27 10:29 | Outpatient (AMB) | payer MEDICARE, OTHER, SELFPAY ==
--- NOTE | 2024-06-27 10:33 | MHC.PC.OV ---
Vital Signs 06/27/24 10:36 Height 5 ft 2 in Weight 161 lb 4 oz BMI 29.5 BP 120/72 Blood Pressure Location Lt brachial Position Sitting Pulse 68 Pulse Source Pulse Oximeter Temp 97.3 F Temp Source Temporal Artery Scan Pulse Oximetry (%) 97 Oxygen Delivery Method Room Air Intake Visit Reasons: 6mth f/u Intake Note: Patient is here to follow up on HTN, HLD. 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 Accompanied by: Self / Same As Patient Allergies penicillin V Allergy (Unknown, Verified 06/27/24 10:35) Unknown Medication List - Last Reconciled 06/28/24 by Kenney Deluna MD amlodipine 5 mg PO DAILY hydrochlorothiazide 25 mg PO DAILY lisinopril 30 mg PO DAILY lovastatin 40 mg PO DAILY Tobacco use date assessed: 06/27/24 Fall risk assessment: No Falls in past year Last assessed Fall Risk: 06/27/24 Dental Screening Dental Screen Date: 06/27/24 Did you have a dental visit in the last 12 months?: Yes Did you have a dental problem in the last 6 months where you did not have access to dental care?: No Was dental information given to patient?: Patient has dentist HPI 6mth f/u HPI Details HTN and hyperlipidemia on rx; doing well and compliant [facility]LY [facility] Medical History Post-menopausal Preop exam for internal medicine Surgical History History of left knee replacement History of hysterectomy Family History Father Myocardial infarction Mother Breast cancer Social History Housing: House Alcohol intake: current Alcohol intake frequency: 0-2 drinks per day Alcohol type: wine Patient Tobacco Use Status: Never used Tobacco Tobacco use type: Cigarette e-Cigarette/Vaping Use: Never Used Second Hand Smoke Exposure: Yes service: No Current occupational status: retired Cognitive needs: No Hearing needs: Yes (hear aide) Vision needs: Yes (reading glasses) Questionnaire PHQ-9 Over the last 2 weeks, how often have you been bothered by any of the following problems? 1. Little interest or pleasure in doing things: not at all 2. Feeling down, depressed, or hopeless: not at all 3. Trouble falling or staying asleep, or sleeping too much: not at all 4. Feeling tired or having little energy: not at all 5. Poor appetite or overeating: not at all 6. Feeling bad about yourself - or that you are a failure or have let yourself or your family down: not at all 7. Trouble concentrating on things, such as reading the newspaper or watching television: not at all 8. Moving or speaking so slowly that other people could have noticed. Or the opposite - being so fidgety or restless that you have been moving around a lot more than usual: not at all 9. Thoughts that you would be better off or of hurting yourself in some way: not at all Total score: 0 Depression Screening Interpretation: Negative Depression Screening Done: Yes Source: Developed by Drs. Santiago Greenfield, Radha Brandt, Jose Mcclellan and colleagues, with an educational citlalli from [employer]. Thrive Questionnaire Date Thrive assessed: 06/27/24 I am a: Patient What is your living situation today?: I have a steady place to live Within the past 12 months, did the food you bought not last and you didn't have the money to get more?: Never true Within the past 12 months, did you worry whether your food would run out before you got money to buy more?: Never true Do you have trouble paying for medicines?: No Do you have trouble getting transportation to medical appointments?: No Do you have trouble paying your heating and electricity bill?: No Do you have trouble taking care of your child, family member or friend?: No Do you have trouble with day-to-day activities such as bathing, preparing meals, shopping, managing finances, etc.?: No Are you currently unemployed and looking for a job?: No Are you interested in more education?: No Please select the resources that you would like help with: None Currently or been in a relationship where the following occur: No concerns reported THRIVE Score: 0 AUDIT C Alcohol Use Questionnaire (AUDIT-C) 1. How often do you have a drink containing alcohol?: Monthly or less 2. How many drinks containing alcohol do you have on a typical day when you are drinking?: 1 or 2 3. How often do you have six or more drinks on one occasion?: Never Total Score: 1 ENMA-7 AMB Questionnaire ENMA-7 Date ENMA - 7 assessed: 06/27/24 Feeling nervous, anxious, or on edge: 0 = Not at all Not being able to stop or control worryin = Not at all Worrying too much about different things: 0 = Not at all Trouble relaxin = Not at all Being so restless that it is hard to sit still: 0 = Not at all Becoming easily annoyed or irritable: 0 = Not at all Feeling afraid as if something awful might happen: 0 = Not at all Total ENMA-7 score (0-4 normal; 5-9 mild; 10-14 moderate; 15-21 severe): 0 Source: Developed by Drs. Santiago Greenfield, Radha Brandt, Jose Mcclellan and colleagues, with an educational citlalli from [employer]. Review of Systems Const Denies chills, Denies headache(s) and Denies weight loss ENT Denies headache(s) Card Denies chest pain, Denies syncope, Denies irregular heart rhythm and Denies dyspnea Resp Denies chest congestion, Denies cough and Denies dyspnea GI Denies abdominal pain, Denies change in stool character, Denies nausea and Denies vomiting Musc Denies deformity and Denies joint swelling Neuro Denies syncope and Denies headache(s) Physical exam (Primary Care) Vital Signs: Last Vital Signs Temp 97.3 F 06/27/24 10:36 Pulse 68 06/27/24 10:36 BP 120/72 06/27/24 10:36 Pulse Ox 97 06/27/24 10:36 Oxygen Delivery Method Room Air 06/27/24 10:36 BMI result Body Mass Index 29.5 Tobacco/Smoking Status: Tobacco use Status Tobacco use date assessed 06/27/24 06/27/24 10:41 Patient Tobacco Use Status Never used Tobacco 06/27/24 10:41 Tobacco use type Cigarette 06/27/24 10:41 e-Cigarette/Vaping Use Never Used 06/27/24 10:41 PHQ-9: PHQ-9 Score PHQ-9: Total score 0 06/27/24 10:41 Depression Screening Interpretation: Negative Thrive Assessment: Date of Thrive Assessment Date Thrive assessed 06/27/24 06/27/24 10:41 Currently or been in a relationship where the following occur: No concerns reported Const General: cooperative, comfortable, no acute distress and alert Neck Neck: Yes no lymphadenopathy Thyroid: Thyroid normal Resp Effort & Inspection: normal respiratory effort Auscultation: clear to auscultation bilaterally Percussion: percussion normal Cardio Jugular venous distension: no JVD Palpation: normal PMI Rate: regular rate Rhythm: regular rhythm Heart sounds: S1 normal heart sound present and S2 normal heart sound present GI Inspection: Yes normal to inspection Palpation (GI): No hepatosplenomegaly present Skin General skin exam: no rashes or lesions noted Extrem General: Yes no clubbing, cyanosis or edema Coding Level of Care Code Est Pt Level 3 (91266) Diagnoses Hyperlipidemia E78.5 Hypertension I10 Assessment & Plan Assessment & Plan (1) Hyperlipidemia: Code(s): E78.5 - Hyperlipidemia, unspecified Category: Medical Plan: stable; same rx (2) Hypertension: Code(s): I10 - Essential (primary) hypertension Category: Medical Plan: stable; same rx
[2024-06-27 10:36] VITALS: BP 120/72; PULSE 68; TEMP 36.3; O2SAT 97; BMI 29.5
== END 2024-06-27 10:50 | disposition home or self-care (01) ==
PROVIDERS: PCP Internal Medicine; Visit Provider Internal Medicine
DX: E78.5 Hyperlipidemia, unspecified (principal); I10 Essential (primary) hypertension

== ENCOUNTER → 2024-06-27 10:29 | Outpatient (BNVA) | payer MEDICARE, OTHER, SELFPAY | PROVIDERS: PCP Internal Medicine; Visit Provider Internal Medicine | DX: E78.5 Hyperlipidemia, unspecified (principal); I10 Essential (primary) hypertension | CPT/HCPCS: 99212 ==

== ENCOUNTER 2024-12-28 10:25 | Outpatient (AMB) | payer MEDICARE, OTHER, SELFPAY ==
--- NOTE | 2024-12-28 10:28 | A.OFFPC_ITS ---
Vital Signs 12/28/24 10:34 Height 5 ft 2 in Weight 159 lb 6 oz BMI 29.1 BP 124/66 Blood Pressure Location Lt brachial Position Sitting Pulse 70 Pulse Source Pulse Oximeter Pulse Oximetry (%) 96 Oxygen Delivery Method Room Air Intake Visit Reasons: Transfer from [address] Project Structural Engineer Required: No Accompanied by: Self / Same As Patient Allergies penicillin V Allergy (Unknown, Verified 12/28/24 10:51) Unknown Medication List - Last Reconciled 12/28/24 by Paige Allen PA-C amlodipine 5 mg PO DAILY hydrochlorothiazide 25 mg PO DAILY lisinopril 30 mg PO DAILY lovastatin 40 mg PO DAILY Tobacco use date assessed: 12/28/24 Fall risk assessment: No Falls in past year Last assessed Fall Risk: 12/28/24 Dental Screening Dental Screen Date: 12/28/24 Did you have a dental visit in the last 12 months?: No Did you have a dental problem in the last 6 months where you did not have access to dental care?: No Was dental information given to patient?: No HPI Transfer from [address] HPI Details 79-year-old female with past medical his tory of hypertension, hyperlipidemia, elevated glucose, osteoporosis last seen 06/[address] Deluna coming in for follow up. Osteoporosis was diagnosed in 2020, and a bone density screening is planned to be added to the upcoming mammogram appointment. Hypertension is managed with multiple medications, with no reported side effects such as dizziness or leg swelling. The patient underwent a knee replacement three years ago, performed by Dr. Parrish at [facility], with excellent outcomes and no residual pain. Blood work showed slightly elevated blood sugars and cholesterol, prompting a repeat fasting blood test. Preventative care includes a scheduled mammogram and a Cologuard test for colon cancer screening. Patient has no acute concerns today [facility] Medical History Post-menopausal Preop exam for internal medicine Surgical History History of left knee replacement History of hysterectomy Family History Father Myocardial infarction Mother Breast cancer Social History Housing: House Alcohol intake: current Alcohol intake frequency: 0-2 drinks per day Alcohol type: wine Patient Tobacco Use Status: Never used Tobacco Tobacco use type: Cigarette e-Cigarette/Vaping Use: Never Used Second Hand Smoke Exposure: Yes service: No Current occupational status: retired Cognitive needs: No Hearing needs: Yes (hear aide) Vision needs: Yes (reading glasses) Questionnaire PHQ-9 Over the last 2 weeks, how often have you been bothered by any of the following problems? 1. Little interest or pleasure in doing things: not at all 2. Feeling down, depressed, or hopeless: not at all 3. Trouble falling or staying asleep, or sleeping too much: not at all 4. Feeling tired or having little energy: not at all 5. Poor appetite or overeating: not at all 6. Feeling bad about yourself - or that you are a failure or have let yourself or your family down: not at all 7. Trouble concentrating on things, such as reading the newspaper or watching television: not at all 8. Moving or speaking so slowly that other people could have noticed. Or the opposite - being so fidgety or restless that you have been moving around a lot more than usual: not at all 9. Thoughts that you would be better off or of hurting yourself in some way: not at all Total score: 0 Depression Screening Interpretation: Negative Depression Screening Done: Yes 17238 - PHQ-9 Billing: Yes Source: Developed by Drs. Santiago Greenfield, Radha Brandt, Jose Mcclellan and colleagues, with an educational citlalli from [employer]. Thrive Questionnaire Date Thrive assessed: 12/21/24 I am a: Patient What is your living situation today?: I have a steady place to live Within the past 12 months, did the food you bought not last and you didn't have the money to get more?: Never true Within the past 12 months, did you worry whether your food would run out before you got money to buy more?: Never true Do you have trouble paying for medicines?: No Do you have trouble getting transportation to medical appointments?: No Do you have trouble paying your heating and electricity bill?: No Do you have trouble taking care of your child, family member or friend?: No Do you have trouble with day-to-day activities such as bathing, preparing meals, shopping, managing finances, etc.?: No Are you currently unemployed and looking for a job?: No Are you interested in more education?: Yes Please select the resources that you would like help with: None Currently or been in a relationship where the following occur: No concerns reported THRIVE Score: 0 AUDIT C Alcohol Use Questionnaire (AUDIT-C) 1. How often do you have a drink containing alcohol?: 2-3 times a week Total Score: 3 ENMA-7 AMB Questionnaire ENMA-7 Date ENMA - 7 assessed: 12/28/24 Feeling nervous, anxious, or on edge: 0 = Not at all Not being able to stop or control worryin = Not at all Worrying too much about different things: 0 = Not at all Trouble relaxin = Not at all Being so restless that it is hard to sit still: 0 = Not at all Becoming easily annoyed or irritable: 0 = Not at all Feeling afraid as if something awful might happen: 0 = Not at all Total ENMA-7 score (0-4 normal; 5-9 mild; 10-14 moderate; 15-21 severe): 0 Source: Developed by Drs. Santiago Greenfield, Radha Brandt, Jose Mcclellan and colleagues, with an educational citlalli from [employer]. ENMA-7 Assessment Billing ENMA-7 Assessment Tool: ENMA-7 Assessment 27858 Review of Systems Const Denies body aches, Denies fatigue, Denies fever(s), Denies frequent falls, Denies headache(s) and Denies weakness Eyes Reports no additional complaints and Denies change in vision ENT Denies dysphagia, Denies dizziness, Denies facial pain, Denies headache(s), Denies nasal congestion and Denies odynophagia Card Denies chest pain, Denies syncope, Denies irregular heart rhythm, Denies leg edema, Denies lightheadedness and Denies dyspnea Resp Denies cough and Denies dyspnea GI Denies constipation, Denies dysphagia, Denies dyspepsia, Denies diarrhea, Denies nausea, Denies odynophagia and Denies vomiting Denies urinary frequency, Denies dysuria, Denies urinary hesitancy and Denies urinary urgency Musc Denies back pain and Denies myalgias Skin/Breast Reports system reviewed and no additional complaints, except as documented Neuro Denies dizziness, Denies syncope, Denies frequent falls, Denies headache(s) and Denies weakness Psych Reports no additional complaints Endo Denies fatigue Physical exam (Primary Care) Vital Signs: Last Vital Signs Pulse 70 12/28/24 10:34 BP 124/66 12/28/24 10:34 Pulse Ox 96 12/28/24 10:34 Oxygen Delivery Method Room Air 12/28/24 10:34 BMI result Body Mass Index 29.1 Tobacco/Smoking Status: Tobacco use Status Tobacco use date assessed 12/28/24 12/28/24 10:32 Patient Tobacco Use Status Never used Tobacco 12/28/24 10:32 Tobacco use type Cigarette 12/28/24 10:32 e-Cigarette/Vaping Use Never Used 12/28/24 10:32 PHQ-9: PHQ-9 Score PHQ-9: Total score 0 12/28/24 10:34 Depression Screening Interpretation: Negative Thrive Assessment: Date of Thrive Assessment Date Thrive assessed 12/21/24 12/28/24 10:32 Currently or been in a relationship where the following occur: No concerns reported Const General: cooperative, healthy appearing, comfortable and no acute distress Orientation/consciousness: patient oriented x3 HENMT Head: Yes normocephalic Ears: hearing grossly normal bilaterally, external ears normal, TM's normal bilaterally and EAC's normal General nose exam: Normal external nose present Face and sinus: Yes normal facial exam and Yes sinuses nontender Mouth: Normal oral and palatal mucosa present and tongue normal Throat: Yes posterior oropharynx normal Eyes General: appearance normal, both eyes and all related structures Conjunctivae: conjunctivae normal Pupils: Equal, round and reactive pupils present EOM: EOMs intact bilaterally and No Nystagmus present Neck Neck: Yes normal visual inspection, Yes full ROM and Yes no lymphadenopathy Chest Chest palpation & inspection: normal inspection of the chest Resp Effort & Inspection: normal respiratory effort Auscultation: clear to auscultation bilaterally, no crackles, no rales, no rhonchi, no wheezes and breath sounds present Cardio Rate: regular rate Rhythm: regular rhythm Peripheral pulses: radial pulses present and dorsalis pedis present GI Inspection: Yes normal to inspection and No Abdominal wall edema Palpation (GI): Soft to palpation, not firm and nontender Auscultation: normal bowel sounds Rectal Exam - Female: deferred General: Yes no CVA tenderness Back/Spine/Pelvis Back: no CVA tenderness Skin General skin exam: no rashes or lesions noted Neuro General: patient oriented x3 Cranial nerves: Yes Equal, round and reactive pupils present, Yes Midline tongue present, Yes Ability to bilaterally elevate shoulders present and No Nystagmus present Gait exam (Neuro): Normal gait present Extrem General: Yes normal to inspection, Yes full ROM, No no pedal edema and No edema Psych Speech and movement: Normal speech and movement present Affect: normal affect Insight: Good insight present (Psych) Judgement: Good judgement present (Psych) Coding Level of Care Code Est Pt Level 3 (14999) Diagnoses Hypertension I10 Hyperlipidemia E78.5 Elevated glucose R73.09 Screening for colon cancer Z12. Osteoporosis M81.0 Additional Codes ENMA-7 Assessment Billing - ENMA-7 Assessment Tool: ENMA-7 Assessment 81864 ([id number]) PHQ-9 - 31653 - PHQ-9 Billing: Yes ([id number]) Assessment & Plan Assessment & Plan (1) Hypertension: Code(s): I10 - Essential (primary) hypertension Category: Medical Plan: Continue on current blood pressure medication. Avoid salt intake and encourage healthy diet and regular exercise. (2) Hyperlipidemia: Code(s): E78.5 - Hyperlipidemia, unspecified Category: Medical Plan: Avoid foods that are high in cholesterol such as red meat, fried foods, eggs and baked goods. Triglyceride goal of less than 150 and LDL goal of less than 130. Continue on lovastatin (3) Elevated glucose: Code(s): R73.09 - Other abnormal glucose Category: Medical Plan: Plan to order repeat blood work. Decrease the amount of carbohydrates such as pasta, bread, rice, and potatoes and limit the amount of sweets. Although fruits are generally healthy they should be eaten in moderation as they are still high in sugar. (4) Screening for colon cancer: Code(s): Z12.11 - Encounter for screening for malignant neoplasm of colon Category: Medical Plan: Ordered for Cologuard box placed today (5) Osteoporosis: Comment: DEXA 2020. Code(s): M81.0 - Age-related osteoporosis without current pathological fracture Category: Medical Plan: A bone density screening is planned to be added to the upcoming mammogram appointment to monitor osteoporosis. Plan This note was constructed using voice recognition software. While every effort has been made to ensure accuracy and clinical trials systems administrator, still areas may have been included sometimes these areas may affect the content or meeting of the given symptoms. Total time spent caring for the patient today was 30 minutes. This includes time spent before the visit reviewing the chart, time spent during the visit, and time spent after the visit and documentation. Patient was informed and verbally consented to the use of an ambient scribe for clinic note documentation during this visit. Orders: Orders Vitamin D 25-OH Total Today R73.09 - Other abnormal glucose, Z13.21 - Encounter for screening for nutritional disorder Vitamin B12 and Folate Today R73.09 - Other abnormal glucose, Z13.21 - Encounter for screening for nutritional disorder Lipid Panel Today E78.00 - Pure hypercholesterolemia, unspecified Hemoglobin A1c Today E11.65 - Type 2 diabetes mellitus with hyperglycemia, R73.09 - Other abnormal glucose XR DEXA axial skeleton Today R73.09 - Other abnormal glucose, Z78.0 - Asymptomatic menopausal state Referrals Cologuard Test Z12.11 - Encounter for screening for malignant neoplasm of colon
[2024-12-28 10:34] VITALS: BP 124/66; PULSE 70; O2SAT 96; BMI 29.1
== END 2024-12-28 11:06 | disposition home or self-care (01) ==
LOC: HO.HMCH 10:25
PROVIDERS: PCP Internal Medicine
DX: I10 Essential (primary) hypertension (principal); E78.5 Hyperlipidemia, unspecified; R73.09 Other abnormal glucose; Z12.11 Encounter for screening for malignant neoplasm of colon; M81.0 Age-related osteoporosis without current pathological fracture

== ENCOUNTER → 2024-12-28 10:25 | Outpatient (BNVA) | payer MEDICARE, OTHER, SELFPAY | PROVIDERS: PCP Internal Medicine | DX: I10 Essential (primary) hypertension (principal); E78.5 Hyperlipidemia, unspecified; M81.0 Age-related osteoporosis without current pathological fracture; R73.09 Other abnormal glucose | CPT/HCPCS: 96127; 99212 ==

== ENCOUNTER 2025-04-07 10:41 | Outpatient (AMB) | payer MEDICARE, OTHER, SELFPAY ==
--- NOTE | 2025-04-07 10:46 | A.OFFVIS_ITS ---
Vital Signs 3 04/07/25 10:47 Height 5 ft 2 in Weight 157 lb 6.561 oz BMI 28.8 BP 151/80 H Blood Pressure Location Lt brachial Position Sitting Intake Visit Reasons: Colonoscopy screening (positive cologuar) Intake Note: New patient in office today for colonoscopy screening. CC:Patient reports diarrhea if she eats certain foods like spicy foods, and some vegetable and fruits. She states that she was told that she has hemorrhoids and when she gets diarrhea she sees some blood d/t irritation. Midwife Practitioner Required: No Accompanied by: Self / Same As Patient Allergies penicillin V Allergy (Unknown, Verified 04/07/25 10:54) Unknown HPI HPI Colonoscopy screening (positive cologuar): Details: 79-year-old female here for preprocedural meeting to discuss a screening colonoscopy in the context of a positive Cologuard. She is referred by Paige Allen PMX Hypertension - High cholesterol Impaired fasting glucose Carpal tunnel syndrome Osteoporosis Positive Cologuard * SURGICAL history Left knee replacement Hysterectomy Ankle repair with hardware * ALLERGIES Penicillin * Vertigo LABS: Laboratory Tests 06/22/24 07:51 WBC 7.5 Hgb 14.4 Hct 42.6 Plt Count 280 Estimated GFR > 60 Total Bilirubin 1.2 H AST 22 ALT 26 Alkaline Phosphatase 76 TSH 0.91 TODAY'S VISIT Prior scope: Not since Bowel or upper GI problems: Minor occasional problems with hemorrhoids, no CIC, no upper GI problems. Cardiac or respiratory problems: No Anesthesia or sedation problems: No Infectious disease problems: No Family history colon cancer or polyps: No PFSH Medical History Post-menopausal Preop exam for internal medicine Surgical History History of ankle surgery H/O colonoscopy History of left knee replacement History of hysterectomy Family History Father Myocardial infarction Mother Breast cancer Maternal Grandmother Diverticulosis Social History Housing: House Alcohol intake: current Alcohol intake frequency: 0-2 drinks per day Alcohol type: wine Patient Tobacco Use Status: Never used Tobacco Tobacco use type: Cigarette e-Cigarette/Vaping Use: Never Used Second Hand Smoke Exposure: Yes service: No Current occupational status: retired Cognitive needs: No Hearing needs: Yes (hear aide) Vision needs: Yes (reading glasses) Review of Systems Const Denies fatigue, Denies fever(s), Denies night sweats, Denies poor appetite and Denies weight loss Eyes Reports requires corrective lenses ENT Reports Normal hearing present, Denies dysphagia, Denies odynophagia, Denies throat swelling and Denies tongue swelling GI Details: Denies abdominal pain, Denies melena, Denies bloating, Denies hematochezia, Denies constipation, Denies GI cramping, Denies dysphagia, Denies excessive flatus, Denies early satiety, Denies heartburn, Denies diarrhea, Denies nausea, Denies odynophagia, Denies vomiting and Denies hematemesis Skin/Breast Denies pruritus, Denies lesions, Denies rash and Denies jaundice Neuro Reports Normal hearing present and Denies Abnormal speech present Endo Denies fatigue Aller/Immun Denies throat swelling and Denies tongue swelling Physical Exam Vital Signs: Last Vital Signs BP 151/80 H 04/07/25 10:47 BMI result Body Mass Index 28.8 Const General: cooperative, no acute distress, well developed and well groomed Nutritional Appearance: well nourished and overweight Orientation/consciousness: oriented to person, oriented to place and oriented to time Limitations: No language barrier HEENT Head: Yes normocephalic and Yes atraumatic Eyes General: appearance normal, both eyes and all related structures Pupils: Equal, round and reactive pupils present Neck Neck: Yes normal visual inspection and Yes no lymphadenopathy Thyroid: Thyroid normal Resp Effort & Inspection: normal respiratory effort and able to speak in complete sentences Auscultation: clear to auscultation bilaterally Cardio Rate: regular rate Rhythm: regular rhythm Heart sounds: Normal, physiologic split S2 sound present Peripheral pulses: radial pulses present and posterior tibial pulses present GI Inspection: No distended, No Abdominal panniculus present and Yes obesity Palpation (GI): Soft to palpation, nontender, no guarding, not rigid and No hepatosplenomegaly present Percussion: Yes normal to percussion Auscultation: normal bowel sounds Rectal Exam - Female: deferred Abdomen image: 2 1. surgical scar Skin General skin exam: no rashes or lesions noted, turgor normal, skin not dry, no jaundice, No spider nevi and no striae Rashes: no rashes Nails: normal Neuro General: oriented to person, oriented to place and oriented to time Cranial nerves: Yes Equal, round and reactive pupils present and Yes Normal hearing present Speech: No Abnormal speech present Extrem General: Yes normal to inspection, No clubbing, No cyanosis and No edema Psych Appearance: grossly normal and well kempt Mental Status: mental status grossly normal Speech and movement: Normal speech and movement present Affect: normal affect Attitude: cooperative Thought process: Normal thought process present and not confabulating Thought content: Normal thought content present Insight: Good insight present (Psych) Judgement: Good judgement present (Psych) Assessment & Plan Assessment & Plan (1) Positive colorectal cancer screening using Cologuard test: Code(s): R19.5 - Other fecal abnormalities Category: Medical Plan Prior scope: Not since Bowel or upper GI problems: Minor occasional problems with hemorrhoids, no CIC, no upper GI problems. Cardiac or respiratory problems: No Anesthesia or sedation problems: No Infectious disease problems: No Family history colon cancer or polyps: No Orders: Referrals 2 GI Procedure Notification R19.5 - Other fecal abnormalities Medications: New 2 peg 3350-electrolytes 236-22.74-6.74 -5.86 gram (Golytely) until fecal effluent is clear; do not exceed a total volume of 2,000 mL 240 mL PO Q10M 4,000 mL 0RF 1 day Z12.11 - Encounter for screening for malignant neoplasm of colon bisacodyl (Dulcolax (bisacodyl)) 10 mg (2 x 5 mg) PO BEDTIME 4 tabs 0RF 2 days Coding Level of Care Code New Pt Level 3 (67821) Diagnoses Positive colorectal cancer screening using Cologuard test R19.5
[2025-04-07 10:47] VITALS: BP 151/80; BMI 28.8
== END 2025-04-07 11:18 | disposition home or self-care (01) ==
LOC: HO.HGI 10:41
PROVIDERS: Visit Provider Nurse Practitioner
DX: R19.5 Other fecal abnormalities (principal)
CPT/HCPCS: 99203

== ENCOUNTER → 2025-04-07 10:41 | Outpatient (BNVA) | payer MEDICARE, OTHER, SELFPAY | PROVIDERS: Visit Provider Nurse Practitioner | DX: Z01.818 Encounter for other preprocedural examination (principal); R19.5 Other fecal abnormalities | CPT/HCPCS: 99202 ==

== ENCOUNTER 2025-04-18 12:55 | Outpatient (REF) | payer MEDICARE, OTHER, SELFPAY ==
--- NOTE | ~2025-04-18 | MM_ITS ---
EXAMINATION: DXA BONE DENSITY AXIAL HISTORY: Z78.0 - Asymptomatic menopausal state TECHNIQUE: [employer] Dual energy absorptiometry (DEXA) of the lumbar spine, total left hip, and femoral neck was performed. COMPARISON: Comparison is made with the prior examination dated 01/16/2021. FINDINGS: The bone mineral density of the lumbar spine is 1.255 g/cm2, corresponding to a T-score of 0.5, and a Z-score of 2.2. This is indicative of normal bone mineral density. This represents a BMD change of 2.4% compared to the prior exam. This is not statistically significant. The bone mineral density of the left total hip is 0.815 g/cm2, corresponding to a T-score of -1.5, and a Z-score of 0.4. This is indicative of osteopenia. This represents a BMD change of 7.7% compared to the prior exam. This is statistically significant. The bone mineral density of the left femoral neck is 0.766 g/cm2, corresponding to a T-score of -2.0, and a Z-score of 0.1. This is indicative of osteopenia. This represents a BMD change of 10.9% compared to the prior exam. FRACTURE RISK: The FRAX index suggests a ten year probability of major osteoporotic fracture of 22.2%, and of hip fracture 5.8%. MM/XR DEXA axial skeleton IMPRESSION: Based on bone mineral density, and according to World Health Organization (WHO) criteria, the diagnosis is consistent with osteopenia. Statistically, 68% of repeat scans fall within 1 SD (+/- 0.010 g/cm2 for AP spine L1-L4) and 1 SD (+/- 0.012 g/cm2 for femur total) FRAX is a trademark of the [employer]'s [place] [facility] Metabolic Bone Disease, a World Health Organization (WHO) Collaborating Center. Electronically signed by: Santiago Heart MD 04/18/2025 02:00 PM [facility]
--- OUTSIDE RECORDS SUMMARY | 2025-04-18 14:00 | XMS_ITS | Patient Health Record ---
[facility] Address [address] [place] [address] Care Team Providers Care Court Advocate Name Role Phone Kenney Deluna MD Primary Care Provider Giorgio Wallace Unavailable [phone] Allergies Allergen (clinical drug ingredient) Drug/Non Drug Allergy documented on EMR Reaction Allergy Type Onset Date Status amoxicillin Amoxicillin Unknown Drug Allergy Act kriss Reason For Referral No Information Medications Medication SIG (Take, Route, Frequency, Duration) Notes Start Date End Date Status hydroCHLOROthiazide 25 MG 1 tablet in th e morning Orally Once a day; Duration: 30 day(s) Active HYDROcodone-Acetaminophen 5- 325 MG 1 tablet as needed Orally three times a day Active Lisinopril 30 MG 1 tablet Orally Once a day; Duration: 30 day(s) Active amLODIPine Besylate 5 MG 1 tablet Orally Once a day; Duration: 30 day(s) Active Lovastatin 40 MG 1 tablet with the evening meal Orally Once a day; Duration: 30 day(s) Active Cortisone Active Social History Tobacco Use: Social History Observation Description Date Details (start date - stop date) Never Smoker NA - NA Tobacco Use/Smoking Question Answer Notes Are you a: nonsmoker Additional Findings: Tobacco Non-User Current no n-smoker Alcohol Screen Question Answer Notes Did you have a drink contain ing alcohol in the past year? Yes How often did you have a dri nk containing alcohol in the past year? 4 or more times a week (4 points) Points 4 Interpretation Positive Tobacco use other than smoking: Question Answer Notes Are you an other tobacco user? No Plan Of Treatment No Information Insurance Providers Payer Name Payer Address Payer Phone Subscriber Number Group Number Insured Name Patient Relationship to Insured Coverage Start Date Coverage End Date Medicare [employer] [address] [place] [address] [id number] Daya Haro Self - patient is the insured for Life [address] [place] [address] [id number] Etienne Haro Spouse - patient is the spouse of the insured Medical (General) History Medical History History ICD Code Arthritis Back,Hip,and Knee pain High blood pressure Measles Mumps Chicken pox Joint implants/screws CAD Surgical History Surgery Date(Month/Year) ankle 1989
== END 2025-04-18 12:56 | disposition home or self-care (01) ==
LOC: HO.MAMMO 12:55
DX: R73.09 Other abnormal glucose (principal); Z78.0 Asymptomatic menopausal state; Z12.31 Encounter for screening mammogram for malignant neoplasm of breast
CPT/HCPCS: 77063; 77067; 77080

== ENCOUNTER → 2025-04-18 13:30 | Outpatient (BNV) | payer MEDICARE, OTHER, SELFPAY | PROVIDERS: Visit Provider Radiology Diagnostic Radiology | DX: E28.39 Other primary ovarian failure (principal) | CPT/HCPCS: 77080 ==